=== PATIENT | female | born 1945 | race Caucasian/White ===

== ENCOUNTER → 2024-04-20 | Outpatient (CLI) | payer MEDICARE, MEDICAID ==
[~2024-04-20] MED LIST: GADOTERATE MEGLUMINE 5 MMOL/10 ML VIAL IV ONE
== END | disposition home or self-care (01) ==
LOC: MRI 10:16
PROVIDERS: ATTEND Family Medicine
DX: G93.89 Other specified disorders of brain (principal); G43.019 Migraine without aura, intractable, without status migrainosus; G62.9 Polyneuropathy, unspecified; D32.9 Benign neoplasm of meninges, unspecified; G31.89 Other specified degenerative diseases of nervous system; R90.82 White matter disease, unspecified
CPT/HCPCS: 70553; A9577